=== PATIENT | female | born 1995 | race Caucasian/White ===

== ENCOUNTER 2021-03-14 14:54 | Emergency (ER) | payer OTHER, SELFPAY ==
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
[2021-03-14 15:18] VITALS: BP 135/90; PULSE 103; RESP 21; TEMP 36.7; O2SAT 100
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
[2021-03-14] MEDS: IBUPROFEN 600 MG TABLET PO (15:56)
[2021-03-14 17:05] VITALS: BP 125/77; PULSE 90; RESP 18; O2SAT 100
--- NOTE | 2021-03-14 17:18 | PC.NURSE ---
C Collar removed by Phylicia Bella PA-C
[2021-03-14 17:50] VITALS: BP 132/76; PULSE 87; RESP 17; O2SAT 98
== END 2021-03-14 17:52 | disposition home or self-care (01) ==
PROVIDERS: Emergency Provider Emergency Medicine
DX: S16.1XXA Strain of muscle, fascia and tendon at neck level, initial encounter (principal); R91.1 Solitary pulmonary nodule; V43.52XA Car driver injured in collision with other type car in traffic accident, initial encounter
CPT/HCPCS: 72125; 72128; 81025; 99284; A9270

== ENCOUNTER 2023-06-23 10:18 | Outpatient (RCR) | payer OTHER, SELFPAY ==
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
--- NOTE | 2023-06-23 11:43 | OPREHPOC ---
Outpatient Therapy Plan of Care This is a Multidisciplinary Plan of Care that may contain components documented by all disciplines (PT, OT, and ST.) PT Problem 1 PT Problem #1 Knowledge Deficit PT Goal 1 Goal Pt. will be independent with a HEP addressing core stability and postural awareness Target Visit 2 PT Problem 2 PT Problem #2 Pain PT Goal 1 Goal Pt. will report a pain reduction to 3/10 at worst with prolonged standing activities. Target Visit 10 PT Problem 3 PT Problem #3 Impaired Functional Mobil PT Goal 1 Goal Pt. will report being able to walk for duration of 30 minutes with 3/10 pain and intiate walking regimen at home. Target Visit 10 PT Problem 4 PT Problem #4 Impaired Strength PT Goal 1 Goal Pt. will improve abdominal strength to good and l. e. strength to 5/5 to assist with improved pelvic and lumbar stability for improved postural awareness in standing Target Visit 10
--- NOTE | 2023-08-18 15:37 | PTOPDC ---
Assessment and note entered by Luis Enrique Varghese Discharge Information Assessment Status Discharge - Pt Not Present Diagnosis left knee pain Assessment PT Clinical Summary Mrs. Guzman attended her initial evaluation on 06/23/23. She has failed to return to the clinic since and has not contacted the clinic. She will be discharged from our care at this time. Plan of Care PT Services Indicated Yes
== END 2023-08-20 16:10 | disposition home or self-care (01) ==
LOC: ANHPT 10:18
PROVIDERS: Visit Provider Physician Assistant
DX: M25.562 Pain in left knee (principal)
CPT/HCPCS: 97014; 97110; 97161; G0283

== ENCOUNTER 2025-06-22 12:44 | Emergency (ER) | payer OTHER, SELFPAY ==
--- NOTE | ~2025-06-22 | XR_ITS ---
EXAMINATION: XR ankle LT min 3V DATE: 06/22/2025 13:36 INDICATION: Left ankle pain and swelling TECHNIQUE: Anteroposterior, oblique, mortise, and lateral views of the left ankle were obtained. COMPARISON: None. FINDINGS: Alignment is normal. No fracture. Joint spaces are normal. Moderate-sized plantar calcaneal spur. The re is asymmetric soft tissue swelling overlying the lateral malleolus although a significant portion of the density appears of fat attenuation which may be related to body habitus or a lipoma. No ankle joint effusion. IMPRESSION: 1. No left ankle joint effusion or osseous abnormality. Reviewed, dictated and finalized at location A.
--- NOTE | 2025-06-22 13:10 | ED.EXTPRO ---
HPI - Extremity Problem General Chief complaint: Extremity Problem,Nontraumatic Stated complaint: left swollen ankle/pain Time Seen by Provider: 06/22/25 13:18 Source: patient, RN notes reviewed and old records reviewed Mode of arrival: ambulatory Limitations: no limitations History of Present Illness HPI Narrative: 29-year-old female presents to the [facility] with left lateral pain and swelling since Wednesday, 3 days. No known exact injury. Has been doing remodeling at home with a lot of going up on her toes to reach. Tenderness to the lateral malleolus and down the dorsal foot. Has taken ibuprofen No ecchymosis or erythema noted. Positive pedal pulse. Sensation intact in all 5 toes Currently wearing flip-flops Related Data Allergies Allergy/AdvReac Type Severity Reaction Status Date / Time povidone-iodine Allergy Mild REDDNESS Verified 06/22/25 12:48 AND RASH soap Allergy Mild REDDNESS Verified 06/22/25 12:48 AND RASH TO SITE Review of Systems Review of Systems: All systems reviewed & are unremarkable except as noted in HPI and below Constitutional: Constitutional: Reports no additional constitutional complaints Musculoskeletal: Musculoskeletal: Reports as per HPI, Reports arthralgias and Reports joint swelling Integumentary/Breasts: Skin/Breast: Reports system reviewed and no additional complaints, except as docu PMFSH Past Medical History Medical History No active medical problems Family History Family History Mother Patient's mother is in good health Father Patient's father is in good health Social History Social History Smoking status: Never smoker Alcohol intake: never Substance use: never Gender identity (if verbalized by the patient): Female Comments At the time of my signature, I reviewed and agree with the nursing past medical, surgical, social, and family history. There is no relevant family history pertinent to the patient complaint. Exam Const: General: cooperative, healthy appearing, comfortable, no acute distress, well developed, alert and well nourished Nutritional Appearance: well nourished Orientation/consciousness: patient oriented x3 Limitations: no limitations HENMT: Head: normal to inspection Eyes: General: appearance normal, both eyes and all related structures Alignment and Position: alignment normal Neck: Neck: normal visual inspection, full ROM, no lymphadenopathy and no meningeal signs Chest: Chest palpation & inspection: normal inspection of the chest Resp: Effort & Inspection: normal respiratory effort and able to speak in complete sentences Cardio: Rate: regular rate Skin: General skin exam: normal color and no rashes or lesions noted Neuro: General: patient oriented x3, gait normal, moves all extremities and no meningeal signs Cognition (Neuro): normal cognition Speech: normal speech Gait exam (Neuro): Normal gait present Extrem: General: normal to inspection, full ROM, capillary refill normal and normal gait Left lower extremity: ankle Details: tenderness Location: of the lateral malleolus, swelling and normal ROM; no warmth, no abrasions, no lacerations, no ecchymosis and no crepitus and foot Details: toes with normal ROM and vascular exam Details: dorsalis pedis pulse present and normal capillary refill Psych: Appearance: grossly normal and well kempt Mental Status: mental status grossly normal Speech and movement: Normal speech and movement present and Clear speech present Affect: normal affect Attitude: cooperative Course Course Level of Care: Express Care Visit Vital Signs Vital signs: Vital Signs Temperature 98.7 F 06/22/25 13:25 Pulse Rate 80 06/22/25 13:25 Respiratory Rate 20 06/22/25 13:25 Blood Pressure 129/64 06/22/25 13:25 Pulse Oximetry 100 06/22/25 13:25 Temperature 98.7 F 06/22/25 13:25 Pulse Rate 80 06/22/25 13:25 Respiratory Rate 20 06/22/25 13:25 Blood Pressure 129/64 06/22/25 13:25 Pulse Oximetry 100 06/22/25 13:25 Reviewed MDM - Extremity (Nontraumatic) MDM Narrative Medical decision making narrative: Patient sitting exam. Patient is nontoxic, vitals stable. Patient presents with left lateral ankle pain, swelling. X-ray negative. Exam and x-ray consistent with ankle strain or sprain. Discussed [id number] treatments. Offered Golden wraps which she declined. Discussed wearing good supportive shoes, and ankle brace. Patient appropriate for outpatient treatment with close follow-up Discharge instructions reviewed with patient, as well as provided in writing per nursing staff. The instructions also include specific and strict return/GO TO THE ER as well as f/u information. All questions have been answered, and the patient deny any further questions with discharge and discharge plan. Some parts of this dictation were generated by voice recognition software and may contain typographical and/or grammatical inaccuracies. Differential Diagnosis Differential diagnosis: Likely other (Ankle sprain, sprain,) Imaging Data Radiologist's impression: EXAMINATION: XR ankle LT min 3V DATE: 06/22/2025 13:36 INDICATION: Left ankle pain and swelling TECHNIQUE: Anteroposterior, oblique, mortise, and lateral views of the left ankle were obtained. COMPARISON: None. FINDINGS: Alignment is normal. No fracture. Joint spaces are normal. Moderate-sized plantar calcaneal spur. There is asymmetric soft tissue swelling overlying the lateral malleolus although a significant portion of the density appears of fat attenuation which may be related to body habitus or a lipoma. No ankle joint effusion. IMPRESSION: 1. No left ankle joint effusion or osseous abnormality. Critical Care Time Critical Care Time Critical Care Time: No Discharge Plan Discharge Clinical Impression: Left ankle sprain Qualifiers: Encounter type: initial encounter Involved ligament of ankle: unspecified ligament Qualified Code(s): S93.402A - Sprain of unspecified ligament of left ankle, initial encounter Patient Disposition: Home Condition: Stable Instructions: Antibiotic Form, Ankle Sprain (ED) Additional Instructions: Your Xray did not show a fracture. Wear good supportive shoes at all times. Ice should be applied to help reduce swelling. It can be used for 20 to 30 minutes, every 2-3 hours while awake. Do not apply ice directly to your skin. ankle braces or golden-wraps will help support your injured ankle. You can alternate ibuprofen 600mg and Tylenol 650mg every 4 hours as needed for pain Please schedule a follow-up visit with your personal physician for further evaluation and treatment within 2 weeks especially if symptoms persist. For new or worsening symptoms go directly to the emergency room Patient Language: Turkish Follow-up/Referrals: Nate,Arminda Lamas APRN [Primary Care Provider] - 2 Weeks ([facility] follow-up) Time of Disposition: 13:46
[2025-06-22 13:25] VITALS: BP 129/64; PULSE 80; RESP 20; TEMP 37.1; O2SAT 100
== END 2025-06-22 13:51 | disposition home or self-care (01) ==
PROVIDERS: Emergency Provider Nurse Practitioner; PCP Nurse Practitioner Family
DX: S93.402A Sprain of unspecified ligament of left ankle, initial encounter (principal); X58.XXXA Exposure to other specified factors, initial encounter
CPT/HCPCS: 73610; 99213; G0463